=== PATIENT | male | born 1950 | race Caucasian/White ===

== ENCOUNTER 2017-07-30 09:00 | Outpatient (RCR) | payer MEDICARE, OTHER, SELFPAY ==
--- NOTE | 2017-05-29 10:49 | HP.PTEVAL_ITS ---
Patient's Visit Information ANDRES FIGUEROA is a 66 year old M referred to Physical Therapy by Sandra Dyson NP.MARIO ALBERTOPSIT with a diagnosis of s/p LUMBAR FUSION. Date of Evaluation: 05/29/17 Physical Therapist: Atilio Andrew PT, - Visit Plan Frequency: 2x /Week Duration: 4 Weeks Plan: PRECAUTION: LUMBAR BRACE ON WHEN UP [place] TO REMOVE RESTING IN BED. NO BENDING/TWISTING. DLS,POSTURAL EX'S,LE FLEXABLITY,STRENGTHENING BLE,CP - Subjective Subjective: This 66 y/o male presents to physical therapy with s/p lumbar decompression L3- S1 and fusion bilateral L4-5 on 05/06/[address] Beltran at [facility] . Patient was d/c days later due to inscion drainage with lumbar brace. Patient had symptoms in legs with weakness many years progressivelly worse past 6 months.Patient has no denies parathesia/tingling. Bowel/bladder good. Coughing/sneezing -. Patient pain affects sleeping.Patient had MRI showed stenosis. Patient had prior PT surgery.Patient followed up with MD x-rays looked good.Patient has symtoms walking 1/2 mile ,standing 10min sitting okay . SOCIAL: . VOCATION: retired - Pain Bilateral Back Pain Intensity (Out of 10): 1 Pain Intensity Range: 10 - Objective POSTURE: mild foward posture. GAIT: normal ja mild foward posture reciprocal pattern. NEURO: denies parathesia/tingling,redflexes 1/3 L3-4,L4-5, L5-S1. SYTMMTRIES: ALIGN. INSCION: well approximate mild redness. MMT: quads/ hip 4-/5,hams 4/5,ankle 4/5 ,hip abd 4-/5. FLEXABLITY: hams min tight. LUMBAR ROM: flexion mod loss,side glides mod loss,side glides mod loss - Special Tests L/S Slump test left side: Negative L/S Slump test right side: Negative L/S Left Straight Leg Raise: Negative L/S Right Straight Leg Raise: Negative - Goals Goal 1:: Indenpenant with HEP. Goal Time Frame: 4-6 Weeks Goal 2:: Indpendant with posture for ADL'S Goal Time Frame: 4-6 Weeks Goal 3:: Decrease lumbar pain by 60 % or greater to improve function with walking and standing Goal Time Frame: 4-6 Weeks Goal 4:: Patient improve lumbar ROM for function of recovery. Goal Time Frame: 4-6 Weeks Goal 5:: Patient to increase strength BLE 4/5 to i mprove function with walking and standing Goal Time Frame: 4-6 Weeks - Rehabilitation Potential Physical Therapy Diagnosis: This patient underwent s/p lumbar fusion with impatments with decrease strength,flexablity ,ROM cuases deficits with standing walking thus benifit from skilled PT Rehabilitation Potential: Good - Anticipated Interventions Patient/Client Instruction: Educate patient on: Condition, Plan of Care For the Purpose of:: To decrease pain, To increase ROM, To improve muscle performance and motor function, To improve ability to perform ADL's, To increase tolerance to activity/condition/position, To improve performance and independence with ADL's, To improve ability of physical actions for home/ community/work/leisure, To improve health of tissue, To decrease soft tissue restriction, To improve ability to perform tasks related to life management, To improve tolerance to ADL's Therapeutic Exercise to Include: Strength training, Body mechanics, Postural training, Flexibilty training, Dynamic Lumbar Stabilization Comment: BLE For the Purpose of:: To decrease pain, To increase ROM, To increase tolerance to activity/condition/position, To improve performance and independence with ADL 's, To improve ability of physical actions for home/community/work/leisure, To improve gait and locomotor functions, To increase flexibility/ROM, To improve ability to perform tasks related to life management, To improve tolerance to ADL 's IF ES: Yes Cryotherapy (ice pack, ice massage): Yes Thermo therapy (hot pack): Yes For the Purpose of:: To decrease pain, To improve nutrient delivery to tissue, To increase oxygenation perfusion Thank you for the opportunity to evaluate your patient. For Medicare and Medicare HMO plans, please review the plan of care and approve it. It will need to be FAXED BACK to us at [phone] for Medicare purposes. Please let me know if there are questions or concerns regarding this plan of care. Physician Signature: Date:
--- NOTE | 2017-07-02 09:50 | HP.PTDCSUM_ITS ---
HP - PT D/C Summary It has been my pleasure to treat ANDRES FIGUEROA under orders from Sandra Dyson, , SAMANTHA for the diagnosis of s/p LUMBAR FUSION for a total of 9 visit(s). Discharge Date: Please see the following information for a summary of their discharge status. - Subjective Subjective: Doing okay ...some pain did alot of standing. with grocey's - Pain Bilateral Back Pain Intensity (Out of 10): 3 - Overall Improvement % Improvement: 50 - Objective Objective/Function: POSTURE: mild foward posture. GAIT: normal ja , reciprocal pattern. NEURO: inact ,reflexes L3-4,L4-5,L5-S1. MMT: quads/hams 4/ 5 ,4-/5,ankle 4/5. LUMBAR ROM: min/mod loss flexion,extension mod loss. FLEXABILTY: hams min tight - Goals Goal 1:: Indenpenant with HEP. Goal Progress: Progressing Goal 2:: Indpendant with posture for ADL'S Goal Progress: Progressing Goal 3:: Decrease lumbar pain by 60 % or greater to improve function with walking and standing Goal Progress: Progressing Goal 4:: Patient improve lumbar ROM for function of recovery. Goal 5:: Patient to increase strength BLE 4+/5 to i mprove function with walking and standing Goal Progress: Progressing - Plan Plan: cont 2xweek for 4weeks - D/C Information If there are questions or concerns regarding this patient's physical therapy, please feel free to call me at [phone]. Thank you for the referral of this patient. Sincerely, Atilio Andrew, PT,
--- NOTE | 2017-07-02 13:35 | HP.PTREVAL_ITS ---
Sandra Dyson , [place].JOE It has been my pleasure to treat ANDRES FIGUEROA over the last 9 visits for s/p LUMBAR FUSION. Please see the progress note below for an update on the physical therapy plan of care! Subjective: Doing okay ...some pain did alot of standing. with grocey's Objective/Function: POSTURE: mild foward posture. GAIT: normal ja , reciprocal pattern. NEURO: inact ,reflexes L3-4,L4-5,L5-S1. MMT: quads/hams 4/ 5 ,4-/5,ankle 4/5. LUMBAR ROM: min/mod loss flexion,extension mod loss. FLEXABILTY: hams min tight Plan Plan: cont 2xweek for 4weeks Goals Goal 1:: Indenpenant with HEP. Goal Time Frame: 4-6 Weeks Goal Progress: Progressing Goal 2:: Indpendant with posture for ADL'S Goal Time Frame: 4-6 Weeks Goal Progress: Progressing Goal 3:: Decrease lumbar pain by 60 % or greater to improve function with walking and standing Goal Time Frame: 4-6 Weeks Goal Progress: Progressing Goal 4:: Patient improve lumbar ROM for function of recovery. Goal Time Frame: 4-6 Weeks Goal 5:: Patient to increase strength BLE 4+/5 to i mprove function with walking and standing Goal Time Frame: 4-6 Weeks Goal Progress: Progressing Anticipated Interventions Patient/Client Instruction: Educate patient on: Condition, Plan of Care For the Purpose of:: To decrease pain, To increase ROM, To improve muscle performance and motor function, To improve ability to perform ADL's, To increase tolerance to activity/condition/position, To improve performance and independence with ADL's, To improve ability of physical actions for home/ community/work/leisure, To improve health of tissue, To decrease soft tissue restriction, To improve ability to perform tasks related to life management, To improve tolerance to ADL's Therapeutic Exercise to Include: Strength training, Body mechanics, Postural training, Flexibilty training, Dynamic Lumbar Stabilization Comment: BLE For the Purpose of:: To decrease pain, To increase ROM, To increase tolerance to activity/condition/position, To improve performance and independence with ADL 's, To improve ability of physical actions for home/community/work/leisure, To improve gait and locomotor functions, To increase flexibility/ROM, To improve ability to perform tasks related to life management, To improve tolerance to ADL 's IF ES: Yes Cryotherapy (ice pack, ice massage): Yes Thermo therapy (hot pack): Yes For the Purpose of:: To decrease pain, To improve nutrient delivery to tissue, To increase oxygenation perfusion Please do not hesitate to contact me at [phone] by phone or Fax: if you have questions or concerns regarding this new plan of care! Sincerely, Atilio Andrew, PT,
--- NOTE | 2017-11-21 11:42 | HP.PTDCNRP_ITS ---
HP - Discharge Summary (1) - Patient Information ANDRES FIGUEROA was seen in my office for initial evaluation on 05/29/17. The following Plan of Care was established for this patient: Initial Frequency: 2x /Week Initial Duration: 4 Weeks - Anticipated Interventions Patient/Client Instruction: Educate patient on: Condition, Plan of Care For the Purpose of:: To decrease pain, To increase ROM, To improve muscle performance and motor function, To improve ability to perform ADL's, To increase tolerance to activity/condition/position, To improve performance and independence with ADL's, To improve ability of physical actions for home/ community/work/leisure, To improve health of tissue, To decrease soft tissue restriction, To improve ability to perform tasks related to life management, To improve tolerance to ADL's Therapeutic Exercise to Include: Strength training, Body mechanics, Postural training, Flexibilty training, Dynamic Lumbar Stabilization For the Purpose of:: To decrease pain, To increase ROM, To increase tolerance to activity/condition/position, To improve performance and independence with ADL 's, To improve ability of physical actions for home/community/work/leisure, To improve gait and locomotor functions, To increase flexibility/ROM, To improve ability to perform tasks related to life management, To improve tolerance to ADL 's IF ES: Yes Cryotherapy (ice pack, ice massage): Yes Thermo therapy (hot pack): Yes For the Purpose of:: To decrease pain, To improve nutrient delivery to tissue, To increase oxygenation perfusion This patient was last seen in our office 07/30/17. Pertinent comments regarding their Physical therapy will appear below: This patient seen for PT for s/p lumbar fusion with PT tx focusing on DLS, postural ex's ,LE flexablity and patient education. Patient progressing well except concerned with walking 1 mile with with increase leg symtoms.Thus is D/C. At this point I will be discontinuing this patient from physical therapy. I would be happy to see this patient again in the future if found appropriate by the physician. Thank you! Atilio Andrwe, PT,
== END 2017-07-30 19:00 | disposition home or self-care (01) ==
LOC: PT 09:00
PROVIDERS: Family Provider Family Medicine; PCP Family Medicine; Visit Provider Nurse Practitioner Acute Care
DX: Z98.1 Arthrodesis status (principal)
CPT/HCPCS: 97110; 97162

== ENCOUNTER → 2017-11-20 13:08 | Outpatient (CLI) | payer MEDICARE, OTHER, SELFPAY ==
[2017-11-12 16:42] LABS: Creatinine, Serum 0.99 mg/dL (0.70-1.30); EST Glomerular Filtration Rate 81 mL/min (>60); Est Glom Filt Rate - Afr Amer 97 mL/min (>60)
--- NOTE | 2017-11-20 13:17 | MRI_ITS ---
STUDY: MRI LUMBAR SPINE WITH AND WITHOUT CONTRAST REASON FOR EXAM: Male, 67 years old. Back pain and right leg pain TECHNIQUE: Standardized fat and water weighted pulse sequences were obtained in the sagittal and axial planes. 10 ml of Gadavist contrast material was administered for the contrast portion of the examination. COMPARISON: None FINDINGS: T12-L1: Normal endplates. Normal disc height, hydration and minimal bulging annulus.. Normal bilateral facet joints. Normal central canal and bilateral lateral recesses. Normal bilateral intervertebral neural foramina. Normal lumbar lordosis. There is no substantial scoliosis. Normal conus medullaris that terminates at T12-L1 L1-2: Normal endplates. Normal disc height, hydration and morphology. Normal bilateral facet joints. Normal central canal and bilateral lateral recesses. Normal bilateral intervertebral neural foramina. L2-3: Normal endplates. Normal disc height, desiccation and normal morphology. Normal bilateral facet joints. Normal central canal and bilateral lateral recesses. Normal bilateral intervertebral neural foramina. L3-4: Status post bilateral laminectomy Normal endplates. Normal disc height, hydration and mild annular bulge. Bilateral facet arthropathy.. Normal central canal. Moderate to severe bilateral recess and neuroforaminal stenosis L4-5: Status post bilateral laminectomy and posterior fusion Normal endplates. Normal disc height, desiccation and minimal annular bulge. Bilateral facet arthropathy. Normal central canal. Moderate to severe bilateral recess and neuroforaminal stenosis Posterior to the L4 vertebral body, there is retraction of the sac slightly to the right due to scarring. L5-S1: Status post bilateral laminectomy. Normal endplates. Normal disc height, hydration and morphology. Bilateral facet arthropathy.. Normal central canal. Mild bilateral recess and neuroforaminal encroachment. Normal visualized sacral ala. Normal visualized paraspinous soft tissue structures. MRI/Spine Lumbar W/WO Contrast IMPRESSION: Postsurgical changes at L3-4, L4-5 and L5-S1. Spinal stenosis L3-4 and L4-5 due to minimal bulging of the annulus and facet arthropathy. Retraction of thecal sac towards the right posterior to L4 due to scarring No evidence for acute osteomyelitis or discitis Other findings as above Electronically Signed: Torres Bahena MD at 22:22 EDT , Service support ,
== END ==
PROVIDERS: Family Provider Family Medicine; PCP Family Medicine; Visit Provider Orthopaedic Surgery
DX: M54.5 Low back pain (principal); Z98.1 Arthrodesis status
CPT/HCPCS: 36415; 72158; 82565; A9585

== ENCOUNTER → 2017-12-12 09:25 | Outpatient (CLI) | payer MEDICARE, OTHER, SELFPAY ==
--- NOTE | 2017-12-15 19:42 | LEAS ---
Arterial Study - Arterial Study Arterial Study: This is a 67-year-old male with a history of hypertension and hyperlipidemia. The patient presents with bilateral lower extremity pain, made worse with ambulation. Suspecting the presence of atherosclerotic peripheral arterial occlusive disease, the patient was brought to the noninvasive vascular laboratory at this time for the purpose of bilateral noninvasive lower extremity arterial assessment. Doppler signal assessment was used to evaluate the pulses at ankle level bilaterally. The posterior tibial and dorsalis pedis pulses were triphasic bilaterally. Segmental limb pressures were obtained at ankle level bilaterally. The right ankle pressure, as determined by posterior tibial pulse, was measured at 157 mmHg. The right ankle pressure, as determined by dorsalis pedis pulse, was measured at 149 mmHg. The left ankle pressure, as determined by posterior tibial pulse, was measured at 154 mmHg. The left ankle pressure, as determined by dorsalis pedis pulse, was measured at 149 mmHg. Pulse-volume recordings were obtained bilaterally and segmentally. Waveform amplitudes appeared to be satisfactory at all levels bilaterally, including low thigh, calf, ankle, and digital levels. Resting ankle-brachial indices were calculated bilaterally. The resting right ankle-brachial index was calculated to be 1.17. The resting left ankle-brachial index was calculated to be 1.15. Impression: Based upon the findings of this resting noninvasive lower extremity arterial study, there is no evidence of significant atherosclerotic peripheral arterial occlusive disease in the lower extremities bilaterally. Triphasic waveforms were noted at ankle level bilaterally. Resting ankle-brachial indices were bilaterally normal. In summary, this represents a normal resting noninvasive lower extremity arterial study bilaterally.
== END ==
PROVIDERS: Family Provider Family Medicine; PCP Family Medicine; Visit Provider Orthopaedic Surgery
DX: I73.9 Peripheral vascular disease, unspecified (principal); R25.2 Cramp and spasm
CPT/HCPCS: 93923

== ENCOUNTER → 2018-08-28 10:04 | Outpatient (CLI) | payer MEDICARE, OTHER, SELFPAY ==
--- NOTE | 2018-08-28 10:10 | RAD_ITS ---
STUDY: X-RAY - PELVIS AND BILATERAL HIPS REASON FOR EXAM: Male, 67 years old. TECHNIQUE: AP view of the pelvis.? 2 views of the right hip, and 2 views of the left hip were obtained. COMPARISON: None. FINDINGS: There is a non-specific bowel gas pattern. There are multiple calcified phleboliths. Prior laminectomy and fusion at the L4-L5 level. Normal bilateral iliac wings, sacroiliac joints and visualized sacrum. Normal bilateral superior and inferior pubic rami. Normal pubic symphysis. Normal bilateral ischial tuberosities. Normal visualized right femoral head. There is osteoarthritic spur formation of the right acetabular rim. There is moderate articular joint space narrowing of the right hip. Normal visualized left femoral head. Normal left acetabulum. There is mild articular joint space narrowing of the left hip. RAD/Hips B/L min 2 views w/ Pelvis IMPRESSION: Osteoarthritis of both hip joints more prominent on the right side. Electronically Signed: Shantanu Archer, at 10:54 EDT , Service support ,
== END ==
PROVIDERS: Family Provider Family Medicine; PCP Family Medicine; Referring Provider Nurse Practitioner Family; Visit Provider Nurse Practitioner Family
DX: M25.551 Pain in right hip (principal); M25.552 Pain in left hip
CPT/HCPCS: 73521

== ENCOUNTER → 2019-02-27 16:53 | Outpatient (CLI) | payer MEDICARE, OTHER, SELFPAY ==
--- NOTE | 2019-02-27 17:30 | MRI_ITS ---
STUDY: MRI LUMBAR SPINE WITHOUT CONTRAST REASON FOR EXAM: Male, 68 years old. Lower back pain TECHNIQUE: Standardized fat and water weighted pulse sequences were obtained in the sagittal and axial planes. COMPARISON: None FINDINGS: T12-L1: Normal endplates. Normal disc height, hydration and morphology. Normal bilateral facet joints. Normal central canal and bilateral lateral recesses. Normal bilateral intervertebral neural foramina. Normal lumbar lordosis. There is no substantial scoliosis. Normal conus medullaris that terminates at the L1 level. L1-2: Endplate spondylosis. Decreased disc height and small circumferential disc bulge. Degenerative changes of the bilateral facet joints. Mild narrowing of the central. Normal bilateral intervertebral neural foramina. L2-3: Normal endplates. Normal disc height, hydration and morphology. Normal bilateral facet joints. Normal central canal and bilateral lateral recesses. Normal bilateral intervertebral neural foramina. L3-4: Endplate spondylosis. Decreased disc height and moderate circumferential disc bulge. Degenerative changes of the bilateral facet joints. Moderate narrowing of the central canal and severe narrowing of the bilateral intervertebral neural foramina. L4-5: Endplate spondylosis. Decreased disc height and small circumferential disc bulge. Degenerative changes of the bilateral facet joints. Bilateral laminectomy and posterior fusion. Moderate narrowing of the bilateral intervertebral neural foramina. L5-S1: Endplate spondylosis. Decreased disc height and small circumferential disc bulge. Degenerative changes of the bilateral facet joints. Bilateral laminectomy. Mild narrowing of the bilateral intervertebral neural foramina. Normal visualized sacral ala. Normal visualized paraspinous soft tissue structures. MRI/Spine Lumbar (Routine) IMPRESSION: Multilevel degenerative changes, as described above. Electronically Signed: Christi Soto, at 23:57 EDT Tel , Service support ,
== END ==
PROVIDERS: Family Provider Family Medicine; PCP Family Medicine
DX: M48.062 Spinal stenosis, lumbar region with neurogenic claudication (principal); M43.16 Spondylolisthesis, lumbar region; M54.16 Radiculopathy, lumbar region
CPT/HCPCS: 72148

== ENCOUNTER → 2019-11-26 15:26 | Outpatient (CLI) | payer MEDICARE, OTHER, SELFPAY ==
--- NOTE | 2019-11-26 15:29 | MRI_ITS ---
STUDY: MRI LUMBAR SPINE WITHOUT CONTRAST REASON FOR EXAM: Male, 69 years old. spinal stenosis, radiculopathy, c/o L leg pain, 2 failed sx TECHNIQUE: Standardized fat and water weighted pulse sequences were obtained in the sagittal and axial planes. COMPARISON: 02/27/2090 MRI lumbar spine FINDINGS: T12-L1: Normal endplates. Normal disc height, hydration and morphology. Normal bilateral facet joints. Normal central canal and bilateral lateral recesses. Normal bilateral intervertebral neural foramina. Normal lumbar lordosis. There is no substantial scoliosis. Normal conus medullaris that terminates at the L1 level. L1-2: Normal endplates. Normal disc height, hydration and morphology. Normal bilateral facet joints. Normal central canal and bilateral lateral recesses. Normal bilateral intervertebral neural foramina. L2-3: Normal endplates. Normal disc height, hydration and morphology. Vertebral bilateral facet joints. Normal central canal and bilateral lateral recesses. Normal bilateral intervertebral neural foramina. L3-4: Posterior fusion rods and pedicular screws and laminectomies. Disc at L3-4. Slight anterior subluxation. Central canal patent. Moderate narrowing of inferior neural foramina bilaterally. L4-5: Normal endplates. Normal disc height, hydration and morphology. Normal bilateral facet joints. Normal central canal and bilateral lateral recesses. Narrowing inferior bilateral intervertebral neural foramina. Annular tear right lateral posterior disc. Laminectomy. L5-S1: Normal endplates. Normal disc height, hydration and morphology. Normal bilateral facet joints. Normal central canal and bilateral lateral recesses. Moderate bilateral intervertebral neural foramina. Spinectomy. Normal visualized sacral ala. Normal visualized paraspinous soft tissue structures. MRI/Spine Lumbar (Routine) IMPRESSION: Posterior fusion rods and pedicular screws have been removed from L4-5 to L3-4. Moderate narrowing of the inferior neural foramina at L4-5 and L3-4. Electronically Signed: Obi Dockery MD at 17:35 EDT , Service support ,
== END ==
PROVIDERS: PCP Family Medicine
DX: M48.062 Spinal stenosis, lumbar region with neurogenic claudication (principal); M43.16 Spondylolisthesis, lumbar region; M54.16 Radiculopathy, lumbar region
CPT/HCPCS: 72148

== ENCOUNTER → 2020-12-06 07:56 | Outpatient (CLI) | payer MEDICARE, OTHER, SELFPAY ==
[2020-02-02 10:15] VITALS: BMI 35.2
--- NOTE | 2020-12-06 08:14 | MRI_ITS ---
STUDY: MRI THORACIC SPINE WITHOUT CONTRAST REASON FOR EXAM: Male, 70 years old. Spine pain, pre eval for spinal cord stimulator TECHNIQUE: Standardized fat and water weighted pulse sequences were obtained in the sagittal and axial planes. COMPARISON: None. FINDINGS: Normal kyphosis of the thoracic spine. There is no substantial scoliosis. T1-2, T2-3, T3-4, T4-5, T5-6, T6-7, T7-8, T8-9, T9-10, T10-11, T11-12: Normal endplates. Normal disc hydration, heights and morphology of the corresponding intervertebral discs. Normal central canal and intervertebral neural foramina at the corresponding levels. Bridging anterior marginal spurs along the thoracic spine at multiple levels. Benign focal fatty infiltration in the posterior aspect of the T11 vertebral body. Normal visualized thoracic cord. Normal conus medullaris that terminates at the upper L1 vertebral body level. The soft tissue structures are unremarkable. MRI/Spine Thoracic (Routine) IMPRESSION: Normal unenhanced MRI examination of the thoracic spine. Electronically Signed: Chintan Olmos MD at 13:36 EDT , Service support ,
== END ==
PROVIDERS: PCP Family Medicine
DX: M54.6 Pain in thoracic spine (principal)
CPT/HCPCS: 72146

== ENCOUNTER → 2022-02-12 | Outpatient (CLI) | payer MEDICARE, OTHER, SELFPAY ==
--- NOTE | 2022-02-12 15:52 | RAD_ITS ---
EXAM: XR BILATERAL HIPS WITH PELVIS WHEN PERFORMED, 2 VIEWS CLINICAL INDICATION: BILATERAL PRIMARY OSTEOARTHRITIS OF HIP TECHNIQUE: Frontal view of the bilateral hips with pelvis when performed. This report was created using [employer] report generation technology. COMPARISON: 08/28/2018 FINDINGS: BONES/JOINTS: Moderate, worsening degenerative changes of the right hip with near-complete joint space loss, and prominent osteophytes. Stable mild degenerative changes of the left hip. No displaced fracture. No destructive or sclerotic lesions. Note that overlapping bowel shadows may however obscure fine detail. Sacroiliac joint is unremarkable. No widening of the pubic symphysis. SOFT TISSUES: Unremarkable. No soft tissue swelling or gas. RAD/Hips B/L min 2 views w/ Pelvis IMPRESSION: 1. Moderate, worsening degenerative changes of the right hip with near-complete joint space loss, and prominent osteophytes. 2. Stable mild degenerative changes of the left hip. Electronically Signed: Jean Garay MD at 6:33 EDT ,
== END | disposition home or self-care (01) ==
PROVIDERS: PCP Family Medicine
DX: M16.0 Bilateral primary osteoarthritis of hip (principal)
CPT/HCPCS: 73521

== ENCOUNTER → 2022-03-08 | Outpatient (CLI) | payer MEDICARE, OTHER, SELFPAY ==
--- NOTE | 2022-03-08 09:25 | RAD_ITS ---
STUDY: X-RAY - LEFT SHOULDER REASON FOR EXAM: Male, 71 years old. Pain. TECHNIQUE: 4 view(s) of the shoulder. COMPARISON: None. FINDINGS: Osteopenia. Mild arthrosis of the glenohumeral joint. Moderate arthrosis of the AC joint. Small subacromial spur. Sclerosis and cystic changes of the humeral head. The soft tissue structures are normal. Normal visualized pulmonary apex. RAD/Shoulder min 2 Views IMPRESSION: Osteopenia with arthrosis of the glenohumeral and acromioclavicular joints. Small subacromial spur. Sclerosis and cystic changes of the humeral head. No acute abnormality or erosive changes. Electronically Signed: Neil Begum, at 10:27 EST ,
== END | disposition home or self-care (01) ==
LOC: RAD 09:21
PROVIDERS: PCP Family Medicine
DX: M19.012 Primary osteoarthritis, left shoulder (principal)
CPT/HCPCS: 73030

== ENCOUNTER → 2022-04-26 | Outpatient (CLI) | payer MEDICARE, OTHER, SELFPAY ==
[2022-04-26 16:09] LABS: ALB/GLOB Ratio 1.5 RATIO (0.9-2.4); AST(SGOT) 15 U/L (15-37); Alanine Aminotransfer ALT/SGPT 30 U/L (16-61); Albumin, Serum 4.6 g/dL (3.2-5.0); Alkaline Phosphatase 71 U/L (45-117); Anion Gap 10 (5-15); BUN 30 mg/dL (7-18); BUN/Creat Ratio 27.3 RATIO (10-20); Calcium,Total 10.2 mg/dL (8.5-10.1); Chloride 102 mmol/L (98-107); Cholesterol 212 mg/dL (200); EST Glomerular Filtration Rate 70 mL/min (>60); Est Glom Filt Rate - Afr Amer 85 mL/min (>60); Glucose 140 mg/dL (74-106); High Density Lipoprotein 35 mg/dL; Potassium 3.9 mmol/L (3.5-5.1); Protein, Total 7.6 g/dL (6.4-8.2); Sodium Level 138 mmol/L (136-145); Triglycerides 380 mg/dL; Very Low Density Lipoprotein 76 mg/dL (5-40)
[2022-04-26 16:31] LABS: Microalbumin,Random Urine < 5.0 mg/L (NO RANGE EST.)
== END | disposition home or self-care (01) ==
LOC: MTLAB 11:12
PROVIDERS: PCP Family Medicine; Referring Provider Family Medicine; Visit Provider Family Medicine
DX: E11.9 Type 2 diabetes mellitus without complications (principal); N52.9 Male erectile dysfunction, unspecified; Z12.5 Encounter for screening for malignant neoplasm of prostate
CPT/HCPCS: 36415; 80053; 80061; 82043; 84153; G0103

== ENCOUNTER → 2022-09-21 | Outpatient (CLI) | payer MEDICARE, OTHER, SELFPAY | END | disposition home or self-care (01) | LOC: MTLAB 14:10 | PROVIDERS: PCP Family Medicine; Referring Provider Family Medicine; Visit Provider Family Medicine | DX: E11.9 Type 2 diabetes mellitus without complications (principal) | CPT/HCPCS: 36415; 83036 ==

== ENCOUNTER → 2022-10-19 | Outpatient (CLI) | payer MEDICARE, OTHER, SELFPAY | END | disposition home or self-care (01) | LOC: CVS 06:24 | PROVIDERS: PCP Family Medicine; Referring Provider Family Medicine; Visit Provider Family Medicine | DX: Z01.810 Encounter for preprocedural cardiovascular examination (principal); I45.10 Unspecified right bundle-branch block; R94.31 Abnormal electrocardiogram [ECG] [EKG] | CPT/HCPCS: 78452; 93017; A9500; A4216; J2785 ==

== ENCOUNTER → 2022-12-26 | Outpatient (CLI) | payer MEDICARE, OTHER, SELFPAY ==
[2022-12-26 15:36] LABS: Microalbumin,Random Urine 5.4 mg/L (NO RANGE EST.); Microalbumin:Creatinine Ratio 3.6 mg/g CRE (<30 mg/g CRE)
[2022-12-26 15:50] LABS: ALB/GLOB Ratio 1.2 RATIO (0.9-2.4); AST(SGOT) 12 U/L (15-37); Alanine Aminotransfer ALT/SGPT 24 U/L (16-61); Albumin, Serum 4.1 g/dL (3.2-5.0); Alkaline Phosphatase 82 U/L (45-117); Anion Gap 6 (5-15); BUN 45 mg/dL (7-18); BUN/Creat Ratio 22.7 RATIO (10-20); Calcium,Total 9.7 mg/dL (8.5-10.1); Chloride 103 mmol/L (98-107); Cholesterol 187 mg/dL (200); Creatinine, Serum 1.98 mg/dL (0.70-1.30); EST Glomerular Filtration Rate 36 mL/min (>60); Est Glom Filt Rate - Afr Amer 43 mL/min (>60); Globulin 3.3 g/dL (2.2-4.2); Glucose 128 mg/dL (74-106); High Density Lipoprotein 35 mg/dL; Potassium 4.5 mmol/L (3.5-5.1); Protein, Total 7.4 g/dL (6.4-8.2); Sodium Level 135 mmol/L (136-145); Triglycerides 295 mg/dL; Very Low Density Lipoprotein 59 mg/dL (5-40)
[2022-12-26 16:45] LABS: Hemoglobin A1c 6.1 % (3.8-5.6)
== END | disposition home or self-care (01) ==
PROVIDERS: PCP Family Medicine; Referring Provider Family Medicine; Visit Provider Family Medicine
DX: E11.9 Type 2 diabetes mellitus without complications (principal); Z12.5 Encounter for screening for malignant neoplasm of prostate; E75.6 Lipid storage disorder, unspecified
CPT/HCPCS: 36415; 80053; 80061; 82043; 82570; 83036

== ENCOUNTER → 2023-01-30 | Outpatient (CLI) | payer MEDICARE, OTHER, SELFPAY ==
[2023-01-30 10:38] LABS: Anion Gap 3 (5-15); BUN 30 mg/dL (7-18); BUN/Creat Ratio 25.6 RATIO (10-20); Calcium,Total 10.8 mg/dL (8.5-10.1); Chloride 107 mmol/L (98-107); Creatinine, Serum 1.17 mg/dL (0.70-1.30); EST Glomerular Filtration Rate 65 mL/min (>60); Est Glom Filt Rate - Afr Amer 79 mL/min (>60); Glucose 124 mg/dL (74-106); Potassium 4.7 mmol/L (3.5-5.1); Sodium Level 137 mmol/L (136-145)
== END | disposition home or self-care (01) ==
LOC: MTLAB 09:22
PROVIDERS: PCP Family Medicine; Referring Provider Family Medicine; Visit Provider Family Medicine
DX: E78.00 Pure hypercholesterolemia, unspecified (principal)
CPT/HCPCS: 36415; 80048

== ENCOUNTER → 2024-05-26 | Outpatient (CLI) | payer MEDICARE, OTHER, SELFPAY ==
[2024-05-26 10:09] LABS: Basophil# 0.04 X10^3/uL; Basophil% 0.7 % (0-1); Eosinophil# 0.12 X10^3/uL; Eosinophils% 2.1 % (0-5); Hematocrit 40.1 % (40-54); Hemoglobin 13.2 g/dL (13.0-16.5); Mean Corp Hgb Conc 32.9 g/dL (32-36); Mean Corpuscular Hgb 29.2 pg (27.0-32.0); Mean Corpuscular Volume 88.7 fL (80-94); Mean Platelet Vol. 10.1 fl (6.2-12.0); Monocyte# 0.66 X10^3/uL; Monocyte% 11.7 % (0-10); NRBC Flagged by Analyzer 0 % (0-5); Neutrophil % 53.3 % (47-70); Platelet Count 243 K/mm3 (150-450); RBC Distribution Width SD 42.2 fl (35.1-43.9); Red Blood Count 4.52 M/mm3 (4.6-6.2); White Blood Count 5.6 K/mm3 (4.4-11.0)
[2024-05-26 10:30] LABS: Hemoglobin A1c 6.4 % (3.8-5.6)
[2024-05-26 11:07] LABS: ALB/GLOB Ratio 1.3 RATIO (0.9-2.4); AST(SGOT) 16 U/L (15-37); Alanine Aminotransfer ALT/SGPT 25 U/L (16-61); Albumin, Serum 4.2 g/dL (3.2-5.0); Alkaline Phosphatase 85 U/L (45-117); Anion Gap 8 (5-15); BUN 28 mg/dL (7-18); Calcium,Total 9.7 mg/dL (8.5-10.1); Chloride 103 mmol/L (98-107); Cholesterol 204 mg/dL (200); Creatinine, Serum 1.12 mg/dL (0.70-1.30); EST Glomerular Filtration Rate 68 mL/min (>60); Est Glom Filt Rate - Afr Amer 83 mL/min (>60); Globulin 3.3 g/dL (2.2-4.2); Glucose 144 mg/dL (74-106); High Density Lipoprotein 41 mg/dL; PSA,Total - Annual Screen 0.79 ng/mL (0.00-4.00); Potassium 4.7 mmol/L (3.5-5.1); Protein, Total 7.5 g/dL (6.4-8.2); Sodium Level 137 mmol/L (136-145); Triglycerides 192 mg/dL; Very Low Density Lipoprotein 38 mg/dL (5-40)
== END | disposition home or self-care (01) ==
LOC: MTLAB 08:20
PROVIDERS: PCP Family Medicine; Referring Provider Family Medicine; Visit Provider Family Medicine
DX: Z12.5 Encounter for screening for malignant neoplasm of prostate (principal); E11.9 Type 2 diabetes mellitus without complications; Z12.11 Encounter for screening for malignant neoplasm of colon; I10 Essential (primary) hypertension
CPT/HCPCS: 36415; 80053; 80061; 83036; 84153; 85025; G0103

== ENCOUNTER 2024-07-24 07:08 | Day surgery (SDC) | payer MEDICARE, OTHER, SELFPAY ==
--- NOTE | 2024-07-21 10:55 | PAT.ANESEVAL ---
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 When Was Last Pacemaker Check QUESTION #4 FULL TEXT: You/Your Family Experience fever (hyperthermia) with Anesthesia Last Oral Intake Last Oral intake: Last Oral Intake NPO since Meds taken in AM with sips of water? 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 Female No 07/21/24 08:34 HX of Motion Sickness No 07/21/24 08:34 HX of N/V After Surgery No 07/21/24 08:34 Non-Smoker Yes 07/21/24 08:34 Duration of Surgery greater No 07/21/24 08:34 than 60 minutes Number of Risk Factors 1 07/21/24 08:34 PONV Score Low Risk 07/21/24 08:34 Height & Weight Height & Weight: Anesthesia: Height & Weight Height 6 ft 06/18/24 09:37 Respiratory Assessment Respiratory Assessment - flaking roll operator: Respiratory Tract Infection Hx - flaking roll operator Hx Respiratory Tract Infection No 07/21/24 08:34 STOP Sleep Apnea STOP Sleep Apnea - flaking roll operator: STOP Sleep Apnea - flaking roll operator Hx Hypertension Yes: CONTROLLED WITH MED 07/21/24 08:34 Hx Sleep Apnea No 07/21/24 08:34 CPAP BIPAP Do you snore loudly (louder Yes 07/21/24 08:34 than talking or can be heard Do you often feel tired/ No 07/21/24 08:34 fatigued/ sleepy during daytime? Has anyone observed you stop No 07/21/24 08:34 breathing during sleep? STOP Results Positive 07/21/24 08:34 QUESTION #5 FULL TEXT : Do you snore loudly (louder than talking or can be heard through closed doors)? 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 Specify any problems Hx of Preganancy in last 3 N/A 07/21/24 08:34 Months Nurse Filling Out Transfusion DSCHRIBER 07/21/24 08:34 & Questions: Date: 07/21/24 07/21/24 08:34 Time: 08:36 07/21/24 08:34 Patient unable to answer at this time (ie. 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 History - flaking roll operator: /Reproductive Hx- flaking roll operator Hx Now No 07/21/24 08:34 Gestational Age (in weeks): EDC: Hx Hx Para Hx Section SAB No 07/21/24 08:34 PFSH Medical History (Updated 07/21/24 @ 08:45 by Carleen Humphries) Wears hearing aid Wears glasses Cancer Depression Anxiety Alcohol use Diabetes Arthritis Back pain Gastric reflux Former smoker Asthma Shortness of breath on exertion Leg cramps History of pain when walking History of stress test Blood in stool, rachell Acid reflux Hemorrhoids Positive colorectal cancer screening using Cologuard test Posterolateral fusion Bilateral lumbar hemilaminectomy Trochanteric bursitis of right hip Spondylolisthesis Spinal stenosis of lumbar region Hyperlipidemia HTN (hypertension) Home Medications ?Medication ?Instructions ?Recorded ?Last Taken ?Type calcium 600 mg-D3 800 unit-mag11 1 tab PO DAILY 02/02/20 Unknown History 50 le-tbhd-dxulsy-juvenal-s.borat tablet (Caltrate 600-D Plus Minerals) fenofibrate nanocrystallized 145 145 mg PO DAILY 02/02/20 Unknown History mg tablet lisinopril 40 mg tablet 40 mg PO DAILY 02/02/20 Unknown History meloxicam 15 mg tablet 15 mg PO DAILY 02/02/20 Unknown History rosuvastatin 40 mg tablet 40 mg PO QHS 02/02/20 Unknown History dapagliflozin propanediol 10 mg 10 mg PO DAILY 06/18/24 07/20/24 History tablet (Farxiga) omeprazole 20 mg capsule,delayed 20 mg PO DAILY 06/18/24 Unknown History release mometasone 0.1 % topical ointment 1 applic topical DAILY PRN skin 07/21/24 Unknown History irritation Allergy/AdvReac Type Severity Reaction Status Date / Time No Known Allergies Allergy Verified 07/21/24 08:29 Family History (Updated 06/18/24 @ 09:37 by Bobbi Ingram LPN) Father Diabetes Heart disease Sister H/O bilateral hip replacements Mother Emphysema/COPD Brother Pancreatic cancer Surgical History (Updated 07/21/24 @ 08:44 by Carleen Humphries) Hx of wisdom tooth extraction History of back surgery History of hip replacement H/O spinal fusion H/O laminectomy Social History (Updated 02/02/20 @ 11:[address] Eleuterio Wiggins, DO) household members: spouse housing: house current occupational status: retired Smoking Status: Former smoker alcohol intake: current alcohol intake frequency: 3 or more drinks per day substance use type: does not use what type of physical activity do you participate in: walking and swimming frequency: daily seatbelt use: always do you feel safe at home: Yes Audit: Pertinent Findings Pertinent Findings Stress test pertinent findings: October 20, 2019. Ejection fraction 69%. No fixed or reversible perfusion defect noted. (No ischemia). Recommendation Anesthesia Recommendation Anesthesia recommendation: OPTIMIZED for anesthesia
[2024-07-24] VITALS (7 sets, daily range): BP systolic 97–146; BP diastolic 65–86; PULSE 94–100; RESP 16; TEMP 36.1–36.5; O2SAT 93–98; BMI 35.1
--- NOTE | 2024-07-24 07:19 | PCM.PRE.AN2 ---
ASA Classification* ASA Classification ASA Classification: 2 Assessment & Plan Anesthesia* Anesthesia Assessment Anesthesia Assessment: Discussed sedation and/or anesthesia options, risks, benefits, and alternatives with patient/parents/legal guardian/POA. Questions invited. The patient/parents/legal guardian/POA seems to understand and agrees to proceed with anesthesia plan. Reviewed the physical assessment, medical history, allergy history and patient home medications list prior to surgery/procedure/anesthetic and documented any changes. Performed airway and anesthesia risk assessments. Anesthesia Type Anesthesia Type: MAC Anesthesia Focused Assessment* Airway Assessment Mouth opens: >3 cm Mallampati Score: II Focused Labs Anesthesia Preop lab: CBC WBC 5.6 K/mm3 (4.4-11.0) 05/26/24 08:23 05/26/24 RBC 4.52 M/mm3 (4.6-6.2) L 05/26/24 08:23 05/26/24 Hgb 13.2 g/dL (13.0-16.5) 05/26/24 08:23 05/26/24 Hct 40.1 % (40-54) 05/26/24 08:23 05/26/24 Plt Count 243 K/mm3 (150-450) 05/26/24 08:23 05/26/24 CHEMISTRY Potassium 4.7 mmol/L (3.5-5.1) 05/26/24 08:23 05/26/24 Sodium 137 mmol/L (136-145) 05/26/24 08:23 05/26/24 BUN 28 mg/dL (7-18) H 05/26/24 08:23 05/26/24 Creatinine 1.12 mg/dL (0.70-1.30) 05/26/24 08:23 05/26/24 Glucose 144 mg/dL (74-106) H 05/26/24 08:23 05/26/24 COAG Pre-Assessment Diagnosis/Proposed Procedure Planned Operative Procedure(s): CSCOPE Anesthesia History 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 When Was Last Pacemaker Check QUESTION #4 FULL TEXT: You/Your Family Experience fever (hyperthermia) with Anesthesia Last Oral Intake Last Oral intake: Last Oral Intake NPO since Meds taken in AM with sips of water? 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 Female No 07/21/24 08:34 HX of Motion Sickness No 07/21/24 08:34 HX of N/V After Surgery No 07/21/24 08:34 Non-Smoker Yes 07/21/24 08:34 Duration of Surgery greater No 07/21/24 08:34 than 60 minutes Number of Risk Factors 1 07/21/24 08:34 PONV Score Low Risk 07/21/24 08:34 Height & Weight Height & Weight: Anesthesia: Height & Weight Height 6 ft 06/18/24 09:37 Respiratory Assessment Respiratory Assessment - foreign exchange dealer: Respiratory Tract Infection Hx - foreign exchange dealer Hx Respiratory Tract Infection No 07/21/24 08:34 STOP Sleep Apnea STOP Sleep Apnea - foreign exchange dealer: STOP Sleep Apnea - foreign exchange dealer Hx Hypertension Yes: CONTROLLED WITH MED 07/21/24 08:34 Hx Sleep Apnea No 07/21/24 08:34 CPAP BIPAP Do you snore loudly (louder Yes 07/21/24 08:34 than talking or can be heard Do you often feel tired/ No 07/21/24 08:34 fatigued/ sleepy during daytime? Has anyone observed you stop No 07/21/24 08:34 breathing during sleep? STOP Results Positive 07/21/24 08:34 QUESTION #5 FULL TEXT : Do you snore loudly (louder than talking or can be heard through closed doors)? 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 Specify any problems Hx of Preganancy in last 3 N/A 07/21/24 08:34 Months Nurse Filling Out Transfusion DSCHRIBER 07/21/24 08:34 & Questions: Date: 07/21/24 07/21/24 08:34 Time: 08:36 07/21/24 08:34 Patient unable to answer at this time (ie. 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: /Reproductive Hx- foreign exchange dealer Hx Now No 07/21/24 08:34 Gestational Age (in weeks): EDC: Hx Hx Para Hx Section SAB No 07/21/24 08:34 PFSH Medical History Wears hearing aid Wears glasses Cancer Depression Anxiety Alcohol use Diabetes Arthritis Back pain Gastric reflux Former smoker Asthma Shortness of breath on exertion Leg cramps History of pain when walking History of stress test Blood in stool, rachell Acid reflux Hemorrhoids Positive colorectal cancer screening using Cologuard test Posterolateral fusion Bilateral lumbar hemilaminectomy Trochanteric bursitis of right hip Spondylolisthesis Spinal stenosis of lumbar region Hyperlipidemia HTN (hypertension) Home Medications ?Medication ?Instructions ?Recorded ?Last Taken ?Type calcium 600 mg-D3 800 unit-mag11 1 tab PO DAILY 02/02/20 Unknown History 50 fg-evkb-hxqamm-juvenal-s.borat tablet (Caltrate 600-D Plus Minerals) fenofibrate nanocrystallized 145 145 mg PO DAILY 02/02/20 Unknown History mg tablet lisinopril 40 mg tablet 40 mg PO DAILY 02/02/20 Unknown History meloxicam 15 mg tablet 15 mg PO DAILY 02/02/20 Unknown History rosuvastatin 40 mg tablet 40 mg PO QHS 02/02/20 Unknown History dapagliflozin propanediol 10 mg 10 mg PO DAILY 06/18/24 07/20/24 History tablet (Farxiga) omeprazole 20 mg capsule,delayed 20 mg PO DAILY 06/18/24 Unknown History release mometasone 0.1 % topical ointment 1 applic topical DAILY PRN skin 07/21/24 Unknown History irritation Allergy/AdvReac Type Severity Reaction Status Date / Time No Known Allergies Allergy Verified 07/21/24 08:29 Family History Father Diabetes Heart disease Sister H/O bilateral hip replacements Mother Emphysema/COPD Brother Pancreatic cancer Surgical History Hx of wisdom tooth extraction History of back surgery History of hip replacement H/O spinal fusion H/O laminectomy Social History household members: spouse housing: house current occupational status: retired Smoking Status: Former smoker alcohol intake: current alcohol intake frequency: 3 or more drinks per day substance use type: does not use what type of physical activity do you participate in: walking and swimming frequency: daily seatbelt use: always do you feel safe at home: Yes Review of Systems (Anesthesia) ROS Narrative System reviewed and no additional complaints, except as documented.
[2024-07-24 08:01] LABS: Bedside Glucose 164 mg/dL (74-106)
--- NOTE | 2024-07-24 08:11 | HP.PCM_ITS ---
History and Physical Date of Admission: 07/24/24 Intake Vital Signs 02/01/2010:15 06/18/2508:37 Height 6 ft 6 ft Weight: 262 lb 2 oz BMI 35.5 BP 143/83 H Blood Pressure Location Rt brachial Position Sitting Respiration 18 Pulse 96 Pulse Source Monitor Temp 98.0 F Temp Source Temporal Pulse Oximetry (%) 98 Oxygen Delivery Method room air Intake Visit Reasons: POSITIVE COLOGUARD Chief Complaint: positive cologuard Is patient in pain?: No Allergies No Known Allergies Allergy (Unverified 06/18/24 09:38) Medications ?Medication ?Instructions ?Recorded ?Confirmed ?Type calcium 600 mg-D3 800 unit-mag11 1 tab PO DAILY 02/02/20 06/18/24 History 50 oe-akta-ppwrkn-juvenal-s.borat tablet (Caltrate 600-D Plus Minerals) diphenhydramine 25 1 tab PO QHS PRN 02/02/20 06/18/24 Histo ry mg-acetaminophen 500 mg tablet (Tylenol PM Extra Strength) fenofibrate nanocrystallized 145 mg PO 02/02/20 06/18/24 History mg tablet hydrochlorothiazide 25 mg tablet PO 02/02/20 06/18/24 History lisinopril 40 mg tablet 40 mg PO DAILY 02/02/20 06/18/24 History meloxicam 15 mg tablet PO 02/02/20 06/18/24 History rosuvastatin 40 mg tablet mg PO 02/02/20 06/18/24 History dapagliflozin propanediol 10 mg mg PO DAILY 06/18/24 06/18/24 History tablet (Farxiga) omeprazole 20 mg capsule,delayed mg PO DAILY 06/18/24 06/18/24 History release terbinafine 250 mg oral ea miscellaneous 06/18/24 06/18/24 History tablet-hydroxypropyl chitosan 1 % topical kit Have you fallen in the past year?: No PFSH Medical History (Updated 06/18/24 @ 09:36 by Bobbi Ingram LPN) Blood in stool, rachell Acid reflux Hemorrhoids Positive colorectal cancer screening using Cologuard test Posterolateral fusion Bilateral lumbar hemilaminectomy Osteoarthritis Trochanteric bursitis of right hip Spondylolisthesis Spinal stenosis of lumbar region Hyperlipidemia Prediabetes HTN (hypertension) Surgical History (Updated 06/18/24 @ 09:37 by Bobbi Ingram LPN) History of hip replacement H/O spinal fusion H/O laminectomy Family History (Updated 06/18/24 @ 09:37 by Bobbi Ingram LPN) Father Diabetes Heart diseaseSister H/O bilateral hip replacementsMother Emphysema/COPDBrother Pancreatic cancer Social History (Updated 02/02/20 @ 11:[address] Eleuterio Wiggins, DO) household members: spouse housing: house current occupational status: retired Smoking Status: Former smoker alcohol intake: current alcohol intake frequency: 3 or more drinks per day substance use type: does not use what type of physical activity do you participate in: walking and swimming frequency: daily seatbelt use: always do you feel safe at home: Yes HPI HPI HPI: Patient is a 73-year-old male with positive Cologuard. He does report that he occasionally has blood in his stool but he thinks this is due to hemorrhoids. He denies abdominal pain. He has never had a colonoscopy. He denies family history of colon cancer. ROS General General: No weight change, appetite, fatigue, colon cancer, breast cancer or weakness HEENT HEENT: No difficulty swallowing, eye injury, eye surgery, swollen glands or hoarseness Endo Endocrine: Yes diabetes mellitus; No thyroid disease, thyroid cancer, Hair loss, heat intolerance or cold intolerance Skin Skin: Yes rash; No changing moles Musc Musculoskeletal: Yes back problems and arthritis; No rheumatoid arthritis, gout or joint pain Cardio Cardiovascular: Yes heart disease and high blood pressure; No murmur, pacemaker, atrial fibrillation, heart attack, heart stent, palpitations, shortness of breat with exertion or chest pain Psych Psychiatric: Yes depression and anxiety; No hearing voices Resp Respiratory: No shortness of breath, No sleep apnea, No cough, No COPD, Yes asthma, No emphysema and No wheezing Gastro Gastrointestinal: No abdominal pain, No nausea or vomiting, No diarrhea, Yes constipation, Yes blood in stool, Yes acid reflux, No hemorrhoids, No ulcers, No gallbladder problem and No black,tarry stools Jamie Hematologic: No blood thinners, No blood disorders, No bleeding, No anemia and No blood clots Neuro Neurologic: No numbness, No tingling and No weakness Exam Const General: cooperative Orientation: alert and oriented x3 HENMT Head: normal to inspection Neck Neck: normal visual inspection and full ROM Chest Chest palpation & inspection: normal inspection of the chest Resp Effort & Inspection: normal respiratory effort Auscultation: clear to auscultation bilaterally Cardio Rate: regular rate Rhythm: regular rhythm GI Inspection: non-distended Palpation: soft and nontender Skin General: no rashes or lesions noted Neuro General: patient alert and patient oriented x3 Extrem General: full ROM Psych Appearance: grossly normal Mental Status: mental status grossly normal Assessment and Plan Assessment and Plan (1) Positive colorectal cancer screening using Cologuard test: Status: Acute Plan: Plan for colonoscopy to evaluate. I explained endoscopy in detail to the patient. I explained the risks including but not limited to stroke or heart attack with anesthesia, perforation of the GI tract, bleeding, infection. I explained that any of these could necessitate further emergency surgery. The patient understands and all questions were answered sufficiently. The patient wishes to proceed with procedure. Francis Sherwood MD Pager: [facility] [address] [place] [address] [address] [place] [address] Office: I have examined the patient and the H&P has been reviewed. There are no clinical changes since date of exam.
--- NOTE | 2024-07-24 08:41 | OP.COLON_ITS ---
Patient Name: Silver Coronado Procedure Date: 07/24/2024 8:18 AM Date of : 1950 Age: 73 Procedure: Colonoscopy Indications: Positive Cologuard test Providers: Francis Sherwood MD Referring MD: Adam Rivera Md Medicines: Propofol per Anesthesia Patient Profile: This is a 73 year old male. Refer to note in patient chart for documentation of history and physical. Last Colonoscopy: more than 10 years ago. Complications: No immediate complications. Procedure: Pre-Anesthesia Assessment: - Prior to the procedure, a History and Physical was performed, and patient medications and allergies were reviewed. The patient's tolerance of previous anesthesia was also reviewed. The risks and benefits of the procedure and the sedation options and risks were discussed with the patient. All questions were answered, and informed consent was obtained. Prior Anticoagulants: The patient has taken no anticoagulant or antiplatelet agents. After reviewing the risks and benefits, the patient was deemed in satisfactory condition to undergo the procedure. After I obtained informed consent, the scope was passed under direct vision. Throughout the procedure, the patient's blood pressure, pulse, and oxygen saturations were monitored continuously. The Colonoscope was introduced through the anus and advanced to the cecum, identified by appendiceal orifice and ileocecal valve. The colonoscopy was performed without difficulty. The patient tolerated the procedure well. The quality of the bowel preparation was good. The ileocecal valve, appendiceal orifice, and rectum were photographed. Scope In: 8:28:29 AM Scope Withdrawal Time 0 hours 6 minutes 47 seconds Scope Out: 8:39:10 AM Total Procedure Duration Time 0 hours 10 minutes 41 seconds Findings: The entire examined colon appeared normal on direct and retroflexion views. Impression: - The entire examined colon is normal on direct and retroflexion views. - No specimens collected. Recommendation: - Discharge patient to home. - Resume previous diet. - Continue present medications. - Repeat colonoscopy is not recommended due to current age (66 years or older) for screening purposes. Procedure Code(s): --- Professional --- 84181, Colonoscopy, flexible; diagnostic, including collection of specimen(s) by brushing or washing, when performed (separate procedure) Diagnosis Code(s): --- Professional --- R19.5, Other fecal abnormalities CPT copyright 2021 [employer]. All rights reserved. The codes documented in this report are preliminary and upon marketing account executive review may be revised to meet current compliance requirements. Francis Sherwood MD 07/24/2024 8:41:52 AM This report has been signed electronically. Number of Addenda: 0 Note Initiated On: 07/24/2024 8:18 AM
--- NOTE | 2024-07-24 08:42 | OP.CCLET_ITS ---
07/24/2024 Adam Rivera Md Re : Colonoscopy procedure for Silver Katr Miguel This procedure was performed on Wednesday, July 24, 2024. My impressions and recommendations are as follows: Impressions : - The entire examined colon is normal on direct and retroflexion views. - No specimens collected. Recommendations : - Discharge patient to home. - Resume previous diet. - Continue present medications. - Repeat colonoscopy is not recommended due to current age (66 years or older) for screening purposes. My findings are described in the full procedure note, which is enclosed. If I can be of further assistance, please feel free to contact me at Doctor phone number(s): , Work: . Sincerely, Francis Sherwood MD 07/24/2024 8:41:52 AM This report has been signed electronically.
--- NOTE | 2024-07-24 08:47 | PCM.POST.ANE ---
Anesthesia: Postop Eval I Current Vital Signs Temperature: 97 F Pulse Rate: 98 Blood Pressure: 97/68 Respiratory Rate: 16 Pulse Ox: 96 Oxygen Delivery Method: Room Air Assessment Airway patent: Yes Spontaneous unlabored respirations: Yes Mental status: Awake and Calm nausea: No Vomiting: No Anesthesia Complication: No Fluid Hydration Crystalloid volume administer (ml): 30 Total IV fluid infused: 30 Progress Note Anesthesia document: Postop Eval 1 completed: Yes
--- NOTE | 2024-07-24 09:10 | PCM.POSTANE2 ---
Anesthesia Postop Eval I Sum Postop Eval Completion status Anesthesia document: Postop Eval 1 completed: Yes Anesthesia Postop Eval I Summary Anesthesia Postop Eval I Summary: Anesthesia Postop Eval I: Assessment Summary Airway patent Yes 07/24/24 08:48 [email or web address] Spontaneous unlabored Yes 07/24/24 08:48 [email or web address] respirations Mental status Awake,Calm 07/24/24 08:48 [email or web address] nausea No 07/24/24 08:48 [email or web address] Vomiting No 07/24/24 08:48 [email or web address] Anesthesia Postop Eval I: Fluid Summary Crystalloid volume administer 30 07/24/24 08:48 [email or web address] (ml) Colloids volume administered ( ml) Blood Product volume administered (ml) Total IV fluid infused 30 07/24/24 08:48 [email or web address] Anesthesia Postop Eval I: Summary Notes Anesthesia Complication No 07/24/24 08:48 [email or web address] Anesthesia Complication Comment: Post-operative progress note Anesthesia: Postop Eval II Evaluation Mental status: Awake Pain Level: 0 nausea: No Vomiting: No
== END 2024-07-24 09:12 | disposition home or self-care (01) ==
LOC: EN 07:09 → AC 07:10
PROVIDERS: PCP Family Medicine; Referring Provider Family Medicine; Visit Provider Surgery
PROC: 0DJD8ZZ Inspection of Lower Intestinal Tract, Via Natural or Artificial Opening Endoscopic (ICD-10-PCS; CPT 45378; principal; 2024-07-24 08:10)
DX: R19.5 Other fecal abnormalities (principal); I10 Essential (primary) hypertension; E78.5 Hyperlipidemia, unspecified; K21.9 Gastro-esophageal reflux disease without esophagitis; R73.03 Prediabetes; Z79.1 Long term (current) use of non-steroidal anti-inflammatories (NSAID); Z79.899 Other long term (current) drug therapy; Z87.891 Personal history of nicotine dependence
CPT/HCPCS: 45378; 82962; A4216; J2405

== ENCOUNTER → 2025-01-01 | Outpatient (CLI) | payer MEDICARE, OTHER, SELFPAY ==
--- NOTE | 2025-01-01 09:06 | RAD_ITS ---
PROCEDURE: CHEST PA AND LATERAL 01/01/2025 REASON FOR EXAM: COUGH X 4 MO TECHNIQUE: Procedure Code: RADCXR Modality: DX Procedure: CHEST PA AND LATERAL COMPARISON: None. FINDINGS: The lungs are clear. There is no lobar consolidation or pleural effusion. The heart size is normal. 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 There is an intrathecal stimulator with the tip at the mid thoracic level. RAD/Chest PA and Lateral IMPRESSION: No evidence of acute cardiopulmonary pathology. Other findings as noted. Reading Location: [id number]
== END | disposition home or self-care (01) ==
LOC: RAD 09:03
PROVIDERS: PCP Family Medicine; Referring Provider Otolaryngology; Visit Provider Otolaryngology
DX: R05.9 Cough, unspecified (principal)
CPT/HCPCS: 71046